=== PATIENT | female | born 1980 | race Caucasian/White ===

== ENCOUNTER 2017-10-24 17:12 | Emergency (ER) | payer BC ==
--- NOTE | 2017-10-24 17:54 | EDPHY ---
H & P Time Seen by Provider: 10/24/17 17:27 HPI/ROS: CHIEF COMPLAINT: Left knee pain HISTORY OF PRESENT ILLNESS: The patient is a 37-year-old female with a complicated past medical history. In 2004 she had a spinal fusion. 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 Over time, she has slowly regained function. However, in July of 2017 she again awoke with left lower extremity paralysis. She was seen by her primary care physician. She has been followed by Orthopedics and pain specialist. She states she had multiple falls in July striking her left knee. Since she had not had feeling in her left lower extremity she did not notice any discomfort. However, over the past 2 weeks she has had increasing left knee pain. This is primary on the anterior surface of her knee. It is moderate. It is worse with movement. She is currently wearing a brace in using crutches but is able to ambulate. REVIEW OF SYSTEMS: My complete review of systems is negative except as mentioned in the HPI. Past Medical/Surgical History: Includes avascular necrosis of left hip, acetabular fracture, pelvic fracture Past surgical history: Includes left total hip replacement, cervical fusion, lumbar sacral fusion Smoking Status: Never smoked Physical Exam: Vitals noted General Appearance: Alert and no distress. Head: Pupils equal. Normal. Respiratory: No respiratory distress. Cardiac: regular rate and rhythm. Extremities: Moves all extremities. The patient has a knee brace in place on the left. She removed the knee ablation for exam. Full range of motion, normal appearing. Patient has mild tenderness palpation over her left patella and patellar tendon. No ligamentous instability. Neurovascular intact distally Skin: No rashes or lesions. Neuro: Alert. Normal mood and affect. Constitutional: Initial Vital Signs Temperature (C) 37.3 C 10/24/17 17:22 Heart Rate 78 10/24/17 17:22 Respiratory Rate 16 10/24/17 17:22 Blood Pressure 101/61 10/24/17 17:22 O2 Sat (%) 91 L 10/24/17 17:22 O2 Delivery Mode Room Air Allergies/Adverse Reactions: acetaminophen [From Tylenol] Allergy (Verified 10/24/17 17:21) cortisone Allergy (Verified 10/24/17 17:21) Pork/Porcine Containing Products [pork] Allergy (Verified 10/24/17 17:21) Home Medications: Medication Instructions Recorded Advil 10/24/17 Librium 10 mg (RX) 10/24/17 Lyrica 10/24/17 morphINE 10/24/17 Medical Decision Making - Diagnostics Imaging Results: Imaging Impressions Knee X-Ray 10/24/17 17:49 Impression: Negative left knee radiographs. ED Course/Re-evaluation: In the emergency department I discussed possible etiologies with the patient. I answered all her questions. At this time she has no paralysis of the left lower extremity. An x-ray of her left knee was ordered. Left knee x-ray: Please refer the dictated report. No acute disease noted. I discussed the results with the patient. I answered all her questions. She will follow up with primary care physician as well as Orthopedics. She was given contact information for Orthopedics. She will continue to wear brace and use crutches. Differential Diagnosis: My differential includes but is not limited to fracture, dislocation, contusion , sprain, ligamentous injury, DVT Departure - Departure Disposition: Home, Routine, Self-Care Clinical Impression: Left knee pain Qualifiers: Chronicity: acute Qualified Code(s): M25.562 - Pain in left knee Condition: Good Instructions: Knee Pain (ED) Additional Instructions: Your x-ray was normal. You need follow-up with Orthopedics. Call to make an appointment. Referrals: David Davidson MD [Medical Doctor] - 3-4 days, if not improved
[2017-10-24 19:02] VITALS: BP 110/78
== END 2017-10-24 19:03 | disposition home or self-care (01) ==
DX: M25.562 Pain in left knee (principal)

== ENCOUNTER 2017-12-02 14:03 | Emergency (ER) | payer BC ==
--- NOTE | 2017-12-02 14:35 | EDPHY ---
General - History Smoking Status: Never smoked Time Seen by Provider: 12/02/17 14:20 Narrative: CHIEF COMPLAINT: "needs to be admitted, can't eat or walk" HISTORY OF PRESENT ILLNESS: Patient presents with father bedside. Father provides the bulk history as she has difficulty discussing the details of her illness. She reports that she has ongoing complications or spinal cord he is surgery in 2004. This consists of chronic pain, decreased sensation of mobility of the left extremities. He says over the past 2 days the patient has not been able to eat or drink anything, she is not tolerate liquids very well and has become increasingly weak. She has been to ambulate because of this. She has chronic pain but no new injuries or diagnoses. The patient and father are here because they could no longer take care her home and would like her to be evaluated for placement. REVIEW OF SYSTEMS: Ten systems reviewed and are negative unless otherwise noted in the HPI PAST MEDICAL HISTORY: Peripheral neuropathy, patellar tendinitis, avascular necrosis of the left hip, PAST SURGICAL HISTORY: Thoracic and lumbar fusions left total hip replacement with 2 revisions, C4-T1 fusion SOCIAL HISTORY: Nonsmoker. Lives at home with her parents. Originally from [place] but has been here for 3 to months. No primary care established here. She does have a crayon painter in [place], Dr. Henry FAMILY HISTORY: Noncontributory EXAMINATION General Appearance: Alert, no distress. Frail HEENT: Head is normocephalic and atraumatic. Pupils equal round reactive. Airway is widely patent with Mildly dry mucosa. Neck: Supple nontender, no crepitus, step-off, deformity or rigidity. Cardiovascular: Regular rhythm. No murmur. Good signs of perfusion distally. Respiratory: Regular rhythm. No murmur Neurological: A&O, chronic sensory deficits of the left lower extremity per patient at baseline. Strength is 5/5 in the right upper extremity right lower extremity. Strength is difficult to test the left lower extremity due to pain. Skin: Warm and dry, no rash no petechiae or purpura Extremities: Significant tenderness of the left lower extremity from the thigh need to the hip. She has decreased sensation left lower extremity. Range of motion unable to be tested left lower extremity due to pain. Range of motion right lower extremity is unremarkable and of the upper extremities unremarkable. Psychiatric: Mood and affect normal DIFFERENTIAL DIAGNOSES: Including but not limited to failure to thrive, weakness, dehydration, protein calorie malnutrition MDM: 2:25 p.m. Failure to thrive with decreased inability to tolerate intake by mouth, chronic pain, weakness, inability to care for self at home. The patient and father feel that she is unsafe at home and he is to be admitted for evaluation for placement. I have ordered laboratory studies to evaluate her electrolytes and fluid status and will proceed with evaluation following this. 4:20 p.m. Patient's laboratory studies are all within normal limits with no signs of infection, dehydration, electrolyte disturbance or protein calorie malnutrition. The patient and her father are here requesting admission for the hospital as they are no longer able to care for home and I will discuss with the hospitals. 4:30 p.m. Case discussed with hospitalist Dr. Hosea Wong. He will see the patient consultation. He is requesting case management consultation as well. I have discussed the case with Yolanda Epps RN, and she will visit with the patient as well. 5:[address] At this time Dr. Keen will assume care the patient. She is pending evaluation from case management and consultation by Dr. Wong. Please see the note of Dr. Keen for final disposition. SUPERVISION: Patient was independently examined, but I discussed the case with my secondary supervising physician [facility] ([facility] Medical Decision Makin: Case management evaluation in progress. PHYSICIAN DOCUMENTATION: The patient was evaluated and managed by the Physician Commonwealth Attorney and myself. I have reviewed the chart and addition, I examined the patient myself. History confirmed as general weakness, worsening left knee pain. Physical findings as follows: Patient has scarring on the posterior part of her left knee, compartments are soft, she can move the joint. Ultrasound ordered; negative for DVT per Dr. Mccurdy at 6:30 p.m. 1840: seen by Judith, home with pain medication per him and followup with pain specialist in the office this week, patient and family are in agreement with this plan. Referrals to Dr. Angeles and Trudi per Judith. I am the secondary supervising physician. (Jh Keen) - Diagnostics Imaging Results: Imaging Impressions Extremity Venous Study 12/02/17 17:39 Impression: No deep venous thrombosis left leg. Results called and discussed with Dr. Jh Keen at 12/02/2017 18:25. - Objective Vital Signs: Initial Vital Signs Temperature (C) 37.4 C 12/02/17 14:18 Heart Rate 56 L 12/02/17 14:18 Respiratory Rate 16 12/02/17 14:18 Blood Pressure 112/73 12/02/17 14:18 O2 Sat (%) 84 L 12/02/17 14:18 O2 Delivery Mode Room Air O2 (L/minute) 2 Allergies/Adverse Reactions: acetaminophen [From Tylenol] Allergy (Verified 10/24/17 17:21) cortisone Allergy (Verified 10/24/17 17:21) Pork/Porcine Containing Products [pork] Allergy (Verified 10/24/17 17:21) Home Medications: Medication Instructions Recorded Advil 10/24/17 Librium 10 mg (RX) 10/24/17 Lyrica 10/24/17 morphINE 10/24/17 Laboratory Results: Laboratory Results 12/02/17 14:45 12/02/17 14:45 12/02/17 12/02/17 12/02/17 17:50 14:45 14:45 WBC RBC Hgb Hct MCV MCH MCHC RDW Plt Count MPV Neut % (Auto) Lymph % (Auto) [place] % (Auto) Eos % (Auto) Baso % (Auto) Nucleat RBC Rel Count Absolute Neuts (auto) Absolute Lymphs (auto) Absolute Monos (auto) Absolute Eos (auto) Absolute Basos (auto) Absolute Nucleated RBC Immature Gran % Immature Gran # Sodium 140 mEq/L mEq/L (135-145) Potassium 3.6 mEq/L mEq/L (3.3-5.0) Chloride 106 mEq/L mEq/L (97-110) Carbon Dioxide 26 mEq/l mEq/l (22-31) Anion Gap 8 mEq/L mEq/L (8-16) BUN 9 mg/dL mg/dL (7-23) Creatinine 0.5 mg/dL L mg/dL (0.6-1.0) Estimated GFR > 60 Glucose 93 mg/dL mg/dL (70-100) Calcium 9.6 mg/dL mg/dL (8.5-10.4) Total Bilirubin 0.5 mg/dL mg/dL (0.1-1.4) Conjugated Bilirubin 0.5 mg/dL mg/dL (0.0-0.5) Unconjugated Bilirubin 0.0 mg/dL mg/dL (0.0-1.1) AST 190 IU/L H IU/L (14-46) ALT 433 IU/L H IU/L (9-52) Alkaline Phosphatase 59 IU/L IU/L (38-126) Total Protein 7.3 g/dL g/dL (6.3-8.2) Albumin 4.4 g/dL g/dL (3.5-5.0) Prealbumin 21.3 mg/dL mg/dL (17.6-36.0) Lipase 33 IU/L IU/L (23-300) Beta HCG, Qual NEGATIVE Urine Color YELLOW Urine Appearance CLEAR Urine pH 5.0 (5.0-7.5) Ur Specific [place] 1.008 (1.002-1.030) Urine Protein NEGATIVE (NEGATIVE) Urine Ketones TRACE H (NEGATIVE) Urine Blood NEGATIVE (NEGATIVE) Urine Nitrate NEGATIVE (NEGATIVE) Urine Bilirubin NEGATIVE (NEGATIVE) Urine Urobilinogen NEGATIVE EU EU (0.2-1.0) Ur Leukocyte Esterase NEGATIVE (NEGATIVE) Urine Glucose NEGATIVE (NEGATIVE) 12/02/17 14:45 WBC 4.63 10^3/uL 10^3/uL (3.80-9.50) RBC 4.40 10^6/uL 10^6/uL (4.18-5.33) Hgb 13.0 g/dL g/dL (12.6-16.3) Hct 38.5 % % (38.0-47.0) MCV 87.5 fL fL (81.5-99.8) MCH 29.5 pg pg (27.9-34.1) MCHC 33.8 g/dL g/dL (32.4-36.7) RDW 12.9 % % (11.5-15.2) Plt Count 148 10^3/uL L 10^3/uL (150-400) MPV 11.9 fL H fL (8.7-11.7) Neut % (Auto) 55.4 % % (39.3-74.2) Lymph % (Auto) 36.7 % % (15.0-45.0) [place] % (Auto) 6.9 % % (4.5-13.0) Eos % (Auto) 0.4 % L % (0.6-7.6) Baso % (Auto) 0.4 % % (0.3-1.7) Nucleat RBC Rel Count 0.0 % % (0.0-0.2) Absolute Neuts (auto) 2.56 10^3/uL 10^3/uL (1.70-6.50) Absolute Lymphs (auto) 1.70 10^3/uL 10^3/uL (1.00-3.00) Absolute Monos (auto) 0.32 10^3/uL 10^3/uL (0.30-0.80) Absolute Eos (auto) 0.02 10^3/uL L 10^3/uL (0.03-0.40) Absolute Basos (auto) 0.02 10^3/uL 10^3/uL (0.02-0.10) Absolute Nucleated RBC 0.00 10^3/uL 10^3/uL (0-0.01) Immature Gran % 0.2 % % (0.0-1.1) Immature Gran # 0.01 10^3/uL 10^3/uL (0.00-0.10) Sodium Potassium Chloride Carbon Dioxide Anion Gap BUN Creatinine Estimated GFR Glucose Calcium Total Bilirubin Conjugated Bilirubin Unconjugated Bilirubin AST ALT Alkaline Phosphatase Total Protein Albumin Prealbumin Lipase Beta HCG, Qual Urine Color Urine Appearance Urine pH Ur Specific [place] Urine Protein Urine Ketones Urine Blood Urine Nitrate Urine Bilirubin Urine Urobilinogen Ur Leukocyte Esterase Urine Glucose Departure - Departure Disposition: Home, Routine, Self-Care Clinical Impression: Weakness, Neuropathy Condition: Good Instructions: Weakness (ED) Additional Instructions: or try [facility] for PCP Referrals: Jered Orozco MD [Medical Doctor] - As per Instructions Hoda Angeles MD [Medical Doctor] - As per Instructions
[2017-12-02 15:11] LABS: PLATELET COUNT 148 10^3/uL (150-400)
[2017-12-02 19:59] VITALS: BP 114/68
--- NOTE | 2017-12-02 23:46 | PDCONSULT ---
Flat Bed Knitter Note: Primary care provider: None Primary pain specialist: Dr. Henry Primary orthopedist: Dr. Davidson Primary mental health provider: José Miguel CC: Acute leg pain HPI: 37-year-old female presents with acute leg pain characterized as severe pain located in the left lower extremity extending from the hip down to the knee , approximately 8/10 in severity, resulting in associated pain in her right shoulder which in turn reduces her ability to mentally concentrate and hold meaningful conversation. The patient reports that the onset of this severe pain was in June of 2017 when she reportedly laid on this leg, and awoke after experiencing what she considered nerve impingement. Since that time, she has been dealing with constant pain located in that area, of varying severity. Most recently, approximately 7 days ago, the patient's pain specialist modified her historic pain regimen, reducing her morphine immediate release from 30 mg administered 3 times daily to 30 mg administered twice daily. The patient also had a muscle relaxant initiated at that time, and she reports that she has also been reducing her dosage of Lyrica. Since that time, and particularly notable over the past 5 days, the patient's pain has been escalating to such as state that she has been unable to ambulate. Over this interval, the patient's appetite has been very poor, she reports that she has vomited at least several times, and she feels like she is not able to focus on food intake. She has been forcing herself to drink liquid nutritional shakes, and has been able to tolerate her home medications orally. She reports that she has vomited up some liquids, including coffee. The patient's family is very concerned about her nutritional status, and the patient is very concerned about her ability to ambulate. The patient's father endorses that in the past the patient has expressed suicidal ideation as a potential means of alleviating her chronic pain , on occasion voicing particular plan, but never actively engaging in it. Of note, the patient has suffered from chronic pain as well as mood symptoms for many years. She has had numerous surgeries performed in her back and left lower extremity, and had been working with someone believed to be a pain specialist in [place]. That said, this pain specialist reportedly had his [employer] license revoked and has been investigated by the FBI. The patient's father reports that the patient's entire medical record is within the possession of the FBI for their investigation, and is consequently on available. The patient subsequently decided to relocate to [place] as it was believed that we have better holistic healers in our locale. She relocated to [place] 4 months ago and since that time, she has been established with José Miguel through the assistance of her aunt who is a naturopathic provider at [facility]. Her parents have also been visiting the area and providing the majority of her physical and emotional care. She is stab wished pain medication treatment with Dr. Henry and was referred to Dr. Davidson for orthopedic assistance after presenting to the emergency department several times complaining of left lower extremity pain. A possible etiology of some of her pain in her left knee was felt to be patellar tendinitis, and physical therapy was recommended. Review of systems: Pain left lower extremity, vomiting, anorexia, all other 10 point review systems otherwise negative. Past medical history: As noted above, the patient has a lengthy history of chronic pain in her back and left lower extremity, she endorses a history of anorexia, her father reports a history of depression Past surgical history: Spinal surgery in 2004 with reported C4-T1 fusion, subsequent surgery to her left hip for avascular necrosis of unclear etiology Home medications: Morphine immediate release 30 mg twice daily, Lyrica, possibly tizanidine Social history: The patient has been living in [place] for 4 months, her parents are her primary physical caretakers, her aunt lives locally, she utilizes arm braces for ambulation, she does not drink alcohol or smoke cigarettes, she does use THC extract Family history: The patient has a 2nd and 3rd degree maternal relations who reportedly of pain, alcoholism in the patient's brother, depression and attention deficit hyperactivity disorder in patient's brother Allergies: Numerous medication allergies, unclear reactions Physical exam: Systolic blood pressure 112, heart rate 56, respirations 16, SpO2 84% on room air, temperature 37.4 degrees Generally: Alert awake oriented x3, no apparent distress, patient reports that she is experiencing pain Neuro: Sensation intact bilaterally, patient denies temperature sensation in her left lower extremity, she endorses pressure sensation left lower extremity, motor strength is 5/5 bilateral lower extremities distally, pain is elicited on hip flexion in the left lower extremity which limits motor assessment, she has 5 /5 motor strength right lower extremity, 5/5 nurse plastics strength bilateral hands, facial symmetry Psych: Flat affect, emotions fluctuate during exam, becoming tearful on occasion but then pleasant and polite, thought process is linear comma speech is somewhat slow Cardiac: Heart rhythm is regular, no murmurs rubs or gallops, pulses palpable in the bilateral dorsalis pedis Pulmonary: Lungs are clear to auscultation bilaterally without any crackles or wheezes GI: Abdomen is soft nontender nondistended, bowel sounds are present Skin: Numerous scars over the left hip, no evidence of stasis dermatitis bilateral lower extremity EENT: Moist mucous membranes, no thrush, pupils equal round reactive to light Data: Lipase normal, pre-albumin 21, albumin 4.4, AST 190, ALT 430, white blood cell count 4600, creatinine 0.5, potassium 3.6, serum sodium 140 Imagin10/24/17 knee x-ray demonstrating no fracture, no dis-alignment Outside records: 10/24/2017 emergency department report by Dr. Anisa Umana reports the patient presented for left knee pain, x-ray demonstrating no abnormalities, patient was provided with follow-up information for Dr. Davidson Assessment: 37-year-old female presents with acute on chronic pain secondary to suspected complex regional pain syndrome with suspected underlying mood and mental health disorder as well as continuous opiate dependency Plan: 1. Suspected complex regional pain syndrome. Acute worsening of chronic pain, new problem this provider, further workup is indicated as an outpatient. The patient clearly has a disproportionate amount of pain for any underlying physical etiology which may consist of patellar tendinopathy or peripheral neuropathy secondary to her previous history of orthopedic surgeries. Although I currently do not have access to her records from [place], which are reportedly currently an FBI custody, her father's description of past workup seems indicative that the patient has likely been thoroughly evaluated by orthopedic and neurosurgical providers and seems unlikely that there is a unifying structural etiology for all of her pain symptoms. -that said, the patient is currently under the care of Dr. Henry who was reportedly evaluating whether the patient has a structural cause of her worsening of symptoms since June of 2017, and I will defer to Dr. Henry as to whether there is a verifiable intervene able cause -Dr. Davidson is assisting the patient with management of her potential orthopedic etiologies of pain and I will defer to Dr. Davidson in whether additional imaging is likely to reveal any structural etiology there in that left knee or left hip -we performed a lower extremity ultrasound which demonstrated no evidence of deep venous thrombosis in the left lower extremity -given that the patient's recent reduction in functional mobility was immediately precipitated by reduction in her opiate pain medication, in order to prevent escalating the patient's deconditioning and spiral downward, we will provide her with a limited supply of morphine immediate release 30 mg so the patient is able to compensate enough to see her outpatient providers and work on an alternative strategy, which balances functional mobility and opiate dependency -unless the patient has an absolute indication for subsequent surgery, I would highly recommend that her outpatient providers attempt to manage her functional status without engaging in additional surgery, as her father has reported to me some troubling regulations including that the patient has requested amputation of her extremities in the past as coping mechanisms for her pain, which are clearly not indicated 2. Suspected underlying mood and mental health disorder. The patient freely admits that she historically did suffer from anorexia, and her father does believe that the patient has suffered from depression which would be a natural consequence of dealing above-mentioned pain syndrome, but I suspect that the patient requires more intensive work with a mental health provider, seeing as her father reports that she has intermittently verbalized passive suicidal ideation with specific plan, but has never materialized this into action -her father does not come presently believe that she is suicidal, the patient does not verbalize that she has thoughts of harming herself -she is currently established with a very robust mental health service here in [place], [facility], but I do question whether they are fully aware of the density of the patient's potential mental health issues, as it is sometimes easy to become lost in the patient's focus on the complexities of her pain and over look that the patient may be truly suffering from mental health perspective -I recommended that the patient establish care with a primary care medical provider understands these complexities and interactions and may be able to help coordinate some of this care, the patient her family are very open to this 3. Continuous opiate dependency. The patient clearly has an opiate dependency, both physiologic and emotionally, as she broke down in tears of relief when I shared with her that I would provide her with a short supply of morphine immediate release to bridge her until she sees Dr. Henry -defer outpatient opiate management to her primary pain specialist, but should make note that the patient is at high risk for abuse and overuse potential 4. Vomiting. Her family's chief concern was regarding nutritional status, and both her pre-albumin and albumin levels were within normal limits as well as her electrolytes, indicating that any recent reduction in oral intake has been supplemented adequately with liquid nutritional supplement shakes -I encouraged the patient to continue utilizing the shakes, advance her oral diet as tolerates -the patient requested a feeding tube, there is currently no indication for feeding tube, and I explained this to the patient her family, and they are agreeable to attempting conservative management at this time -I suspect the patient's recent GI decompensation is also a reflection of her destabilized the pain and emotional state, and I imagine that it will improve with improved pain management The patient and her family were satisfied with the treatment recommendations above and were comfortable being discharged home, with family support as well as the support of the aforementioned outpatient providers.
--- NOTE | 2017-12-03 14:44 | ASDISCHSUM ---
Discharge Information Plan Status:Home with No Needs Medically Cleared to Leave: Discharge Date:12/02/2017 08:27 PM CM D/C Disposition:Home, Routine, Self-Care ADT D/C Disposition:Home, Routine, Self-Care Projected Discharge Date:12/02/2017 08:27 PM Transportation at D/C:Family Discharge Delay Reason: Follow-Up Date:12/02/2017 08:27 PM Discharge Slot: Final Diagnosis: Placement Information Patient Contact Information Contact Name:MARIELA Relationship: Address: Work Phone: City: [facility] Phone: State/Zip Code:[place] Email: Financial Information Financial Class:HMO and PPO Plans Primary Plan Desc: OUT OF STATE PPO Primary Plan Number:[id number] Secondary Plan Desc: Secondary Plan Number: Assessment Information [facility] Progress Note CM Note CM Note Notes: Late Entry from 12/02/17: *Please refer to Dr Wong's consultation report for further background and discussion re:pt's safe discharge plan home. Pt presented to the ED via EMS for left knee pain, decreased intake, weakness and requesting admission. Pt was medically evaluated. After labs, urine, and the LLE US resulted, it was determined that pt had no acute medical needs and pt didn't meet criteria for admission. Pt's mother, father and aunt were all at bedside. ED Provider, this CM, and the hospitalist Dr Wong spent extensive time discussing a safe discharge plan for pt to return home and follow-up outpatient w/her orthopedist, Dr Davidson, and her paperhanger and painter, Dr Dasilva at [facility] (O:[phone]; F:[phone]) in [place]. Pt ultimately needing better pain relief due to recent changes in her pain medication regimen; Dr Wong called Dr Dasilva's office and consulted the on-call provider for pain mgmt recommendation. Dr Wong provided pt with a hand written prescription for Morphine IR 30mg (QTY#:10). Pt and family agreeable to overall discharge plan. CM was then alerted that the patient and her family were requesting stretcher transport back to pt's apartment. This CM explained that most likely her insurance would not cover the NEMT stretcher due to not being medically indicated so there would be a high risk of being billed a large amount for the transport. Pt's mother wanted to self pre-pay for a stretcher transport even though it would be $295. This CM called and arranged the transport via [facility] but the ETA was 1.5 - 2hrs out; pt became agitated and family appeared shocked and did not want to wait that long. We discussed wheelchair transport options through [facility] and other private WC transport companies; [facility]'s WC transport ETA was also 1.5-2hrs out and the other various options were not available. This CM found a donated wheelchair in the hospital's basement garage and brought it up to the ED. The wheelchair did not have leg extensions for pt's left leg to be supported, so initially they didn't want to use it. This CM consulted w/MARKOS Blankenship re:any other WC options for the family to borrow and bring back the same night but ultimately this was not an option due to hospital policy. This CM presented pt and family with the two options of 1) waiting 1.5-2hrs for NEMT stretcher or WC transport or 2) to take the donated WC since pt states she can prop her leg up with a pillow and her family can safely ensure she gets home safely. Pt and family opted for the latter option. This CM felt it would be appropriate to have pt sign a release of liability for taking the donated WC w/o leg extensions. This CM found a generic release of liability for DME online and had patient sign it. Copy provided to patient and original to be scanned into pt's chart. It was communicated clearly (w/pt, family and ED RN at bedside) that the pt does not necessarily need to return the wheelchair as it is not a "loan or rental;" it was a donated item that is free for her to use or not use. But if patient no longer needs it and wants to return it to [facility], we would be glad to have it re-donated. CM available for further assistance if needed. Date Signed: 12/03/2017 02:42 PM Electronically Signed By:Yolanda Epps RN Intervention Information Intervention Type:Community Resources Date of Service:12/03/2017 02:42 PM Patient Type:Emergency Room Staff Member:NANCY Epps [place] Hours:0.25 Discipline:Collar Shaper Operator Severity: Comment:DME preet Intervention Type:Transportation Date of Service:12/03/2017 02:42 PM Patient Type:Emergency Room Staff Member:NANCY Epps [place] Hours:2 Discipline:Collar Shaper Operator Severity: Comment:various coordination efforts re: pt re turning home
== END 2017-12-02 20:27 | disposition home or self-care (01) ==
LOC: EDUNIT#
DX: G62.9 Polyneuropathy, unspecified (principal); R53.1 Weakness
CPT/HCPCS: 84134-90

== ENCOUNTER 2018-07-05 06:55 | Observation (INO) | payer OTHER, MEDICAID ==
[2018-07-05 07:33] LABS: PLATELET COUNT 190 10^3/uL (150-400)
[2018-07-05] MEDS ORDERED: NS 1,000 ML IV ONE ×2 (07:36→11:18)
[2018-07-05] MEDS ORDERED: ONDANSETRON 4 MG/2 ML VIAL IVP ONE (07:37)
--- NOTE | 2018-07-05 07:45 | EDPHY ---
HPI/HX/ROS/PE/MDM Narrative: CHIEF COMPLAINT: Abdominal pain HISTORY OF PRESENT ILLNESS: The patient is a 38 y/o female arriving with her mother complaining of waxing and waning epigastric abdominal pain for several weeks worsening over the last week and becoming notably worse in the last 24 hours. Her medical history includes chronic pain, spinal cord injury, probable anorexia, and anxiety. Her medications include Fentanyl patch, hydromorphone, Lyrica, diazepam, clonidine, and nasal ketamine for a recent thermal burn from a rice pack. These are prescribed by her pain doctor in [place], Dr. Henry. Her abdominal pain today feels "like I'm being impaled all the way through to my back" and is sometimes associated with nausea. No vomiting or fever. She cannot identify clear aggravating factors. A heated rice pack applied to her abdomen is sometimes helpful and she denies increasing her pain medications due to this pain. Per mother, she's had significantly decreased food intake for several months and has been only eating pureed foods at home. She denies prior history of similar symptoms, GERD, appendicitis, gall bladder issues, or blood clots. She has not menstruated for at least 3 years and she does not know why. No fever, chills, chest pain, shortness of breath, palpitations, vomiting, diarrhea, urinary complaints, constipation, leg swelling, headache, lightheadedness. REVIEW OF SYSTEMS: Aside from elements discussed in the HPI, a comprehensive 10-point review of systems was reviewed and is negative. Decreased sensation and weakness in left leg following spinal cord injury. 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 Mother at bedside. VITAL SIGNS: Reviewed by me GENERAL: Thin, slow to respond to questions, appears over-narcotized. No respiratory distress. HEENT: Atraumatic. Eyes: No icterus, no injection, small pupils. Mouth: dry mucous membranes. No erythema or lesions. Neck: supple with no adenopathy. LUNGS: Clear to auscultation bilaterally, no wheezes, rhonchi or rales. CARDIAC: Regular rate and rhythm, no rubs, murmurs or gallops. ABDOMEN: Soft, very mild epigastric and RUQ tendereness. No guarding or rebound. Nondistended. Patient has 3 fentanyl patches on the lower abdomen. BACK: No CVA tenderness. Old surgical scar on spine. EXTREMITIES: No trauma. No edema. Range of motion is normal throughout. NEURO: Alert and oriented, grossly nonfocal. SKIN: Warm and dry, no rash. PSYCHIATRIC: Normal mentation, no agitation. Portions of this note were transcribed by a medical biller. I personally performed a history, physical exam, medical decision making, and confirmed accuracy of information the transcribed note. ED Course: This is a 38 y/o female with chronic pain on several narcotics who presents with a few-week history of epigastric abdominal pain worsening over the last 24 hours. She's additionally had decreased food intake for several months per her mother. She is thin, slow to respond, and appears over-narcotized on exam. Her abdomen is benign and vitals are within normal limits. Suspect constipation vs. acalculous cholecystitis versus gastritis. Plan for IV, labs, UA, abdominal CT, rehydration. 1L IV NS and 4mg IV Zofran ordered. Abdominal CT: refer to radiologist report. Patient does have the enlarged common bile duct diameter, as well as slight thickening of the gastric wall, potentially indicating gastritis. LFTs and lipase normal. Bilirubin is normal. GI cocktail ordered. 0950: Reassessed patient and discussed findings. Will order an ultrasound to further evaluate the common bile duct dilatation especially in the setting of an individual whose had very poor p.o. Intake for several months. Abdominal US: no cholelithiasis, thickened gallbladder wall, thickened and enlarged common bile duct suggestive of cholangitis vs. acalculous cholecystitis. 1100: Consulted with Dr. Falk, surgeon. Dr. Falk recommends a HIDA scan. He will follow as needed and will will be happy to consult if the hospitalist service requests. Patient reports increased pain. She also feels significantly constipated. She received Bentyl, was started on magnesium citrate to help with constipation, and received a rectal suppository to stimulate the lower in bowels. Of note, patient also was noted to have potassium of 3.3. She did receive potassium supplementation . Spoke with hospitalist service. Dr. Arriaga accepts admission. MDM: CT scan called to me by Dr. Espino as demonstrating some periportal edema, somewhat enlarged common bile duct at 7 mm, slightly thickened gallbladder wall. Patient also has thickened gastric wall which may be consistent with gastritis. She also is constipated. After obtaining the patient's history and performing an examination, differential diagnosis considered included but was not limited to appendicitis, cholecystitis, acalculous cholecystitis, gastritis, pancreatitis, constipation, urinary tract infections and other causes. - Data Points Imaging Results: Imaging Impressions Abdomen CT 07/05/18 08:06 Impression: 1. Periportal edema associated with the liver without focal abnormality. 2. No CT evidence of appendicitis, abscess or bowel obstruction. 3. Mild thickening of the gastric wall. This could be related to poor distention versus gastritis. 4. Mild to moderate constipation. 5. Distended second and third portion of the duodenum. This is probably related to peristalsis. Narrowing of the third-fourth portion of the duodenum secondary to SMA syndrome is felt to be less likely. 6. Mild dilatation of the common hepatic duct and common bile duct with periportal edema. If indicated, consider correlation with right upper quadrant ultrasound. Findings discussed with Alejandra Cuellar MD at 9:12 hour, 07/05/2018. Abdomen Ultrasound 07/05/18 09:17 Impression: Mild gallbladder wall thickening without evidence for cholelithiasis. This could represent early acalculous cholecystitis. Common bile duct is mildly enlarged at 7 mm and question mild wall thickening. Included in the differential could be cholangitis. No ultrasound findings for choledochal stone. Results called and discussed with Dr. Alejandra Cuellar on July 05, 2018 at 1038 hours. Imaging: Discussed imaging studies w/ call box wirer Radiologist, I viewed and interpreted images myself Laboratory Results: Laboratory Results 07/05/18 07:18 07/05/18 07:18 07/05/18 07/05/18 07/05/18 09:16 07:18 07:18 WBC 7.70 10^3/uL 10^3/uL (3.80-9.50) RBC 4.60 10^6/uL 10^6/uL (4.18-5.33) Hgb 13.2 g/dL g/dL (12.6-16.3) Hct 39.2 % % (38.0-47.0) MCV 85.2 fL fL (81.5-99.8) MCH 28.7 pg pg (27.9-34.1) MCHC 33.7 g/dL g/dL (32.4-36.7) RDW 14.2 % % (11.5-15.2) Plt Count 190 10^3/uL 10^3/uL (150-400) MPV 10.4 fL fL (8.7-11.7) Neut % (Auto) 53.1 % % (39.3-74.2) Lymph % (Auto) 37.5 % % (15.0-45.0) [place] % (Auto) 7.7 % % (4.5-13.0) Eos % (Auto) 1.2 % % (0.6-7.6) Baso % (Auto) 0.4 % % (0.3-1.7) Nucleat RBC Rel Count 0.0 % % (0.0-0.2) Absolute Neuts (auto) 4.09 10^3/uL 10^3/uL (1.70-6.50) Absolute Lymphs (auto) 2.89 10^3/uL 10^3/uL (1.00-3.00) Absolute Monos (auto) 0.59 10^3/uL 10^3/uL (0.30-0.80) Absolute Eos (auto) 0.09 10^3/uL 10^3/uL (0.03-0.40) Absolute Basos (auto) 0.03 10^3/uL 10^3/uL (0.02-0.10) Absolute Nucleated RBC 0.00 10^3/uL 10^3/uL (0-0.01) Immature Gran % 0.1 % % (0.0-1.1) Immature Gran # 0.01 10^3/uL 10^3/uL (0.00-0.10) Sodium Potassium Chloride Carbon Dioxide Anion Gap BUN Creatinine Estimated GFR Glucose Calcium Total Bilirubin Conjugated Bilirubin Unconjugated Bilirubin AST ALT Alkaline Phosphatase Total Protein Albumin Lipase Beta HCG, Qual NEGATIVE Urine Color PALE YELLOW Urine Appearance HAZY Urine pH 8.0 H (5.0-7.5) Ur Specific [place] 1.031 H (1.002-1.030) Urine Protein NEGATIVE (NEGATIVE) Urine Ketones NEGATIVE (NEGATIVE) Urine Blood NEGATIVE (NEGATIVE) Urine Nitrate NEGATIVE (NEGATIVE) Urine Bilirubin NEGATIVE (NEGATIVE) Urine Urobilinogen NEGATIVE EU EU (0.2-1.0) Ur Leukocyte Esterase NEGATIVE (NEGATIVE) Urine RBC 1-3 /hpf /hpf (0-3) Urine WBC 1-3 /hpf /hpf (0-3) Ur Epithelial Cells TRACE /lpf /lpf (NONE-1+) Urine Glucose NEGATIVE (NEGATIVE) Urine Opiates Screen NON-NEGATIVE H (NEGATIVE) Urine Barbiturates NEGATIVE (NEGATIVE) Ur Phencyclidine Scrn NEGATIVE (NEGATIVE) Ur Amphetamine Screen NEGATIVE (NEGATIVE) U Benzodiazepines Scrn NON-NEGATIVE H (NEGATIVE) Urine Cocaine Screen NEGATIVE (NEGATIVE) U Marijuana (THC) Screen NON-NEGATIVE H (NEGATIVE) 07/05/18 07:18 WBC RBC Hgb Hct MCV MCH MCHC RDW Plt Count MPV Neut % (Auto) Lymph % (Auto) [place] % (Auto) Eos % (Auto) Baso % (Auto) Nucleat RBC Rel Count Absolute Neuts (auto) Absolute Lymphs (auto) Absolute Monos (auto) Absolute Eos (auto) Absolute Basos (auto) Absolute Nucleated RBC Immature Gran % Immature Gran # Sodium 138 mEq/L mEq/L (135-145) Potassium 3.3 mEq/L L mEq/L (3.5-5.2) Chloride 102 mEq/L mEq/L (97-110) Carbon Dioxide 29 mEq/l mEq/l (22-31) Anion Gap 7 mEq/L mEq/L (6-14) BUN 8 mg/dL mg/dL (7-23) Creatinine 0.5 mg/dL L mg/dL (0.6-1.0) Estimated GFR > 60 Glucose 109 mg/dL H mg/dL (70-100) Calcium 9.4 mg/dL mg/dL (8.5-10.4) Total Bilirubin 0.6 mg/dL mg/dL (0.1-1.4) Conjugated Bilirubin 0.3 mg/dL mg/dL (0.0-0.5) Unconjugated Bilirubin 0.3 mg/dL mg/dL (0.0-1.1) AST 30 IU/L IU/L (14-46) ALT 28 IU/L IU/L (9-52) Alkaline Phosphatase 75 IU/L IU/L (38-126) Total Protein 6.9 g/dL g/dL (6.3-8.2) Albumin 4.1 g/dL g/dL (3.5-5.0) Lipase 49 IU/L IU/L (23-300) Beta HCG, Qual Urine Color Urine Appearance Urine pH Ur Specific [place] Urine Protein Urine Ketones Urine Blood Urine Nitrate Urine Bilirubin Urine Urobilinogen Ur Leukocyte Esterase Urine RBC Urine WBC Ur Epithelial Cells Urine Glucose Urine Opiates Screen Urine Barbiturates Ur Phencyclidine Scrn Ur Amphetamine Screen U Benzodiazepines Scrn Urine Cocaine Screen U Marijuana (THC) Screen Medications Given: Fentanyl (Duragesic) 100 mcg TD Q72H MATT Stop: 07/15/18 13:14 Last Admin: 07/05/18 14:11 Dose: Not Given Pantoprazole Sodium (Protonix) 40 mg IVP DAILY MATT Stop: 01/01/19 12:59 Last Admin: 07/05/18 14:39 Dose: 40 mg Discontinued Medications Al Hydroxide/Mg Hydroxide (Maalox Susp) 30 ml PO ONCE ONE Stop: 07/05/18 08:07 Last Admin: 07/05/18 08:12 Dose: 30 ml Bisacodyl (Dulcolax Rectal) 10 mg IA EDNOW ONE Stop: 07/05/18 11:22 Last Admin: 07/05/18 11:26 Dose: 10 mg Dicyclomine HCl (Bentyl) 20 mg PO EDNOW ONE Stop: 07/05/18 11:19 Last Admin: 07/05/18 11:26 Dose: 20 mg Hyoscyamine Sulfate (Levsin, Hyomax-Sl) 0.25 mg PO ONCE ONE Stop: 07/05/18 08:07 Last Admin: 07/05/18 08:12 Dose: 0.25 mg Sodium Chloride (Ns) 1,000 mls @ 0 mls/hr IV EDNOW ONE; Wide Open PRN Reason: Protocol Stop: 07/05/18 07:37 Last Admin: 07/05/18 07:41 Dose: 1,000 mls Famotidine/Sodium Chloride (Pepcid 20 Mg (Premix)) 50 mls @ 200 mls/hr IV EDNOW ONE Stop: 07/05/18 08:20 Last Admin: 07/05/18 08:12 Dose: 50 mls Sodium Chloride (Ns) 1,000 mls @ 0 mls/hr IV ONCE ONE; Wide Open PRN Reason: Protocol Stop: 07/05/18 11:19 Last Admin: 07/05/18 11:25 Dose: 1,000 mls Lidocaine (Lidocaine 2% Viscous) 15 ml PO ONCE ONE Stop: 07/05/18 08:07 Last Admin: 07/05/18 08:12 Dose: 15 ml Magnesium Citrate (Magnesium Citrate) 300 ml PO ONCE ONE Stop: 07/05/18 11:19 Last Admin: 07/05/18 11:25 Dose: 300 ml Ondansetron HCl (Zofran) 4 mg IVP EDNOW ONE Stop: 07/05/18 07:38 Last Admin: 07/05/18 07:42 Dose: 4 mg Potassium Chloride (Klor-Con) 40 meq PO ONCE ONE Stop: 07/05/18 08:58 Last Admin: 07/05/18 09:31 Dose: 40 meq General Time Seen by Provider: 07/05/18 07:12 Initial Vital Signs: Initial Vital Signs Temperature (C) 36.6 C 07/05/18 06:59 Heart Rate 74 07/05/18 06:59 Respiratory Rate 20 07/05/18 06:59 Blood Pressure 105/66 07/05/18 06:59 O2 Sat (%) 93 07/05/18 06:59 O2 Delivery Mode Room Air Allergies/Adverse Reactions: acetaminophen [From Tylenol] Allergy (Verified 07/05/18 11:32) Rash cortisone Allergy (Verified 07/05/18 11:32) Other-Enter Comments Pork/Porcine Containing Products [pork] Allergy (Verified 07/05/18 06:57) Home Medications: Medication Instructions Recorded Pregabalin [Lyrica 100mg (*)] 100 mg PO TID 10/24/17 Diazepam [Valium 10 MG (*)] 20 - 30 mg PO TID PRN 07/05/18 HYDROmorphone HCL [Dilaudid 4 mg 4 mg PO QID PRN 07/05/18 (*)] Herbals/Supplements -Info Only 1 each PO DAILY 07/05/18 Ketamine Nasal [place] 1 spray EACHNARE DAILY PRN 07/05/18 Melatonin [Melatonin 3 MG (*)] 3 mg PO HS 07/05/18 Multivitamins [Multivitamin (*)] 1 each PO DAILY 07/05/18 Vitamin B Complex [Vitamin B 1 each PO DAILY 07/05/18 Complex (OTC)] clonIDINE [Catapres (*)] 0.1 - 0.3 mg PO HS PRN 07/05/18 fentaNYL [Duragesic 100 MCG Patch 100 mcg TD Q72H 07/05/18 (*)] Departure - Departure Disposition: [facility] Acute Clinical Impression: cholangitis vs acalculous cholecystitis, possible gastritis Abdominal pain Qualifiers: Abdominal location: epigastric Qualified Code(s): R10.13 - Epigastric pain Constipation Qualifiers: Constipation type: drug induced constipation Qualified Code(s): K59.03 - Drug induced constipation Condition: Fair Report Scribed for: Alejandra Cuellar Report Scribed by: Odalys Landa Date of Report: 07/05/18 Time of Report: 07:45
[2018-07-05] MEDS ORDERED: FAMOTIDINE 20 MG/NACL 50 ML IV ONE (08:06)
[2018-07-05] MEDS ORDERED: LIDOCAINE 2% VISCOUS 15 ML UDCUP PO ONE (08:06)
[2018-07-05] MEDS ORDERED: MAG HYDROX/AL HYDROX/SIMETH 30 ML UDCUP PO ONE (08:06)
[2018-07-05] MEDS ORDERED: HYOSCYAMINE SULFATE 0.125 MG TAB PO ONE (08:06)
[2018-07-05] MEDS ORDERED: IOHEXOL 300 mgI/ML (OMNIPAQUE) 150 ML BTL IV ONE (08:17)
[2018-07-05] MEDS ORDERED: POTASSIUM CL 20 MEQ TAB PO ONE (08:57)
[2018-07-05] MEDS ORDERED: DICYCLOMINE 10 MG CAP PO ONE (11:18)
[2018-07-05] MEDS ORDERED: MAGNESIUM CITRATE 300 ML BOTTLE PO ONE (11:18)
[2018-07-05] MEDS ORDERED: BISACODYL 10 MG SUPP PR ONE (11:21)
[2018-07-05] MEDS ORDERED: ONDANSETRON 4 MG/2 ML VIAL IVP PRN (12:55)
[2018-07-05] MEDS ORDERED: HYDROCODONE/APAP 5/325 TAB PO PRN (12:55)
[2018-07-05] MEDS ORDERED: ACETAMINOPHEN 325 MG TAB PO PRN (12:55)
[2018-07-05] MEDS ORDERED: HYDROmorphONE/DILAUDID 1 MG/ML INJ IVP PRN (12:55)
[2018-07-05] MEDS ORDERED: ONDANSETRON DISINTEGRATING 4 MG TAB PO PRN (12:55)
[2018-07-05] MEDS ORDERED: NS 1,000 ML IV SCH (13:00)
[2018-07-05] MEDS ORDERED: HYDROmorphONE/DILAUDID 4 MG TAB PO PRN (13:01)
[2018-07-05] MEDS ORDERED: KETAMINE EACHNARE PRN (13:01)
[2018-07-05] MEDS ORDERED: MAGNESIUM HYDROXIDE 30 ML UDCUP PO PRN (13:03)
[2018-07-05] MEDS ORDERED: BISACODYL 10 MG SUPP PR PRN (13:03)
[2018-07-05] MEDS ORDERED: POLYETHYLENE GLYCOL 3350 17 GM PKT PO PRN (13:03)
[2018-07-05] MEDS ORDERED: LACTULOSE 20 GM/30 ML UDCUP PO PRN (13:03)
[2018-07-05] MEDS ORDERED: fentaNYL 100 MCG PATCH TD SCH (13:15)
[2018-07-05] MEDS: PANTOPRAZOLE SODIUM 40 MG VIAL IVP SCH (14:39)
--- NOTE | 2018-07-05 14:42 | PDGENHP ---
History and Physical - Chief Complaint abdominal pain - History of Present Illness 38 yo female with h/o chronic pain on chronic continuous opioids presents to ED with epigastric abdominal pain. She notes this has been present for several weeks, but has slowly worsened and today became severe. She describes the pain as a hot poking feeling, localized to her epigastrium, but radiating to her back. No vomiting. No fevers, but she gets chills. No diarrhea, notes thicker , harder stools recently. She was transitioned from oral opioids to fentanyl patches, current dose is 150 mcg q72 hrs, but I noticed she has 200 mcg of patches on her abdomen currently. She says one is old. She takes oral dilaudid 2 mg twice daily. She reports 15 lb weight loss since this summer. Her PCP ordered PPI, but she only took one dose, noting it did not help. In the ED, CT revealed multiple abnormalities. She is admitted for further evaluation. History Information - Allergies/Home Medication List Allergies/Adverse Reactions: acetaminophen [From Tylenol] Allergy (Verified 07/05/18 11:32) Rash cortisone Allergy (Verified 07/05/18 11:32) Other-Enter Comments Pork/Porcine Containing Products [pork] Allergy (Verified 07/05/18 06:57) Home Medications: Pregabalin [Lyrica 100mg (*)] 100 mg PO TID 10/24/17 [Last Taken 07/04/18 21:00] Diazepam [Valium 10 MG (*)] 20 - 30 mg PO TID PRN 07/05/18 [Last Taken 07/04/18 21:00] HYDROmorphone HCL [Dilaudid 4 mg (*)] 4 mg PO QID PRN 07/05/18 [Last Taken 07/04 21:00] Herbals/Supplements -Info Only 1 each PO DAILY 07/05/18 [Last Taken Unknown] Ketamine Nasal [place] 1 spray EACHNARE DAILY PRN 07/05/18 [Last Taken Unknown] Melatonin [Melatonin 3 MG (*)] 3 mg PO HS 07/05/18 [Last Taken 07/04/18] Multivitamins [Multivitamin (*)] 1 each PO DAILY 07/05/18 [Last Taken Unknown] Vitamin B Complex [Vitamin B Complex (OTC)] 1 each PO DAILY 07/05/18 [Last Taken Unknown] clonIDINE [Catapres (*)] 0.1 - 0.3 mg PO HS PRN 07/05/18 [Last Taken 07/04/18] fentaNYL [Duragesic 100 MCG Patch (*)] 100 mcg TD Q72H 07/05/18 [Last Taken ] I have personally reviewed and updated: family history, medical history, social history, surgical history - Past Medical History Additional medical history: Chronic pain 2/2 spinal cord injury, complication of surgery for scoliosis. Avascular necrosis. Peripheral neuropathy. Anxiety - Surgical History Additional surgical history: Spinal surgery - Family History Positive for: non-pertinent - Social History Smoking Status: Never smoked Alcohol Use: None Drug Use: None Additional social history: Lives independently, mom at bedside Review of Systems Review of Systems: ROS: 10pt was reviewed & negative except for what was stated in HPI & below Physical Exam Physical Exam: Temp Pulse Resp BP Pulse Ox 36.9 C 74 18 101/72 97 07/05/18 13:00 07/05/18 13:00 07/05/18 13:00 07/05/18 13:00 07/05/18 13:00 Constitutional: no apparent distress Eyes: PERRL Ears, Nose, Mouth, Throat: moist mucous membranes Cardiovascular: regular rate and rhythym Respiratory: no respiratory distress, clear to auscultation Gastrointestinal: other (soft, nd, +epigastric TTP and RUQ TTP without r/r/g, + BS) Skin: warm Musculoskeletal: full muscle strength Neurologic: AAOx3 Psychiatric: interacting appropriately Lab Data & Imaging Review 07/05/18 07:18 07/05/18 07:18 WBC 7.70 10^3/uL (3.80-9.50) 07/05/18 07:18 RBC 4.60 10^6/uL (4.18-5.33) 07/05/18 07:18 Hgb 13.2 g/dL (12.6-16.3) 07/05/18 07:18 Hct 39.2 % (38.0-47.0) 07/05/18 07:18 MCV 85.2 fL (81.5-99.8) 07/05/18 07:18 MCH 28.7 pg (27.9-34.1) 07/05/18 07:18 MCHC 33.7 g/dL (32.4-36.7) 07/05/18 07:18 RDW 14.2 % (11.5-15.2) 07/05/18 07:18 Plt Count 190 10^3/uL (150-400) 07/05/18 07:18 MPV 10.4 fL (8.7-11.7) 07/05/18 07:18 Neut % (Auto) 53.1 % (39.3-74.2) 07/05/18 07:18 Lymph % (Auto) 37.5 % (15.0-45.0) 07/05/18 07:18 [place] % (Auto) 7.7 % (4.5-13.0) 07/05/18 07:18 Eos % (Auto) 1.2 % (0.6-7.6) 07/05/18 07:18 Baso % (Auto) 0.4 % (0.3-1.7) 07/05/18 07:18 Nucleat RBC Rel Count 0.0 % (0.0-0.2) 07/05/18 07:18 Absolute Neuts (auto) 4.09 10^3/uL (1.70-6.50) 07/05/18 07:18 Absolute Lymphs (auto) 2.89 10^3/uL (1.00-3.00) 07/05/18 07:18 Absolute Monos (auto) 0.59 10^3/uL (0.30-0.80) 07/05/18 07:18 Absolute Eos (auto) 0.09 10^3/uL (0.03-0.40) 07/05/18 07:18 Absolute Basos (auto) 0.03 10^3/uL (0.02-0.10) 07/05/18 07:18 Absolute Nucleated RBC 0.00 10^3/uL (0-0.01) 07/05/18 07:18 Immature Gran % 0.1 % (0.0-1.1) 07/05/18 07:18 Immature Gran # 0.01 10^3/uL (0.00-0.10) 07/05/18 07:18 VBG Lactic Acid 0.5 mmol/L (0.7-2.1) L 07/05/18 11:35 Sodium 138 mEq/L (135-145) 07/05/18 07:18 Potassium 3.3 mEq/L (3.5-5.2) L 07/05/18 07:18 Chloride 102 mEq/L (97-110) 07/05/18 07:18 Carbon Dioxide 29 mEq/l (22-31) 07/05/18 07:18 Anion Gap 7 mEq/L (6-14) 07/05/18 07:18 BUN 8 mg/dL (7-23) 07/05/18 07:18 Creatinine 0.5 mg/dL (0.6-1.0) L 07/05/18 07:18 Estimated GFR > 60 07/05/18 07:18 Glucose 109 mg/dL (70-100) H 07/05/18 07:18 Calcium 9.4 mg/dL (8.5-10.4) 07/05/18 07:18 Total Bilirubin 0.6 mg/dL (0.1-1.4) 07/05/18 07:18 Conjugated Bilirubin 0.3 mg/dL (0.0-0.5) 07/05/18 07:18 Unconjugated Bilirubin 0.3 mg/dL (0.0-1.1) 07/05/18 07:18 AST 30 IU/L (14-46) 07/05/18 07:18 ALT 28 IU/L (9-52) 07/05/18 07:18 Alkaline Phosphatase 75 IU/L (38-126) 07/05/18 07:18 Total Protein 6.9 g/dL (6.3-8.2) 07/05/18 07:18 Albumin 4.1 g/dL (3.5-5.0) 07/05/18 07:18 Lipase 49 IU/L (23-300) 07/05/18 07:18 Beta HCG, Qual NEGATIVE 07/05/18 07:18 Urine Color PALE YELLOW 07/05/18 09:16 Urine Appearance HAZY 07/05/18 09:16 Urine pH 8.0 (5.0-7.5) H 07/05/18 09:16 Ur Specific [place] 1.031 (1.002-1.030) H 07/05/18 09:16 Urine Protein NEGATIVE (NEGATIVE) 07/05/18 09:16 Urine Ketones NEGATIVE (NEGATIVE) 07/05/18 09:16 Urine Blood NEGATIVE (NEGATIVE) 07/05/18 09:16 Urine Nitrate NEGATIVE (NEGATIVE) 07/05/18 09:16 Urine Bilirubin NEGATIVE (NEGATIVE) 07/05/18 09:16 Urine Urobilinogen NEGATIVE EU (0.2-1.0) 07/05/18 09:16 Ur Leukocyte Esterase NEGATIVE (NEGATIVE) 07/05/18 09:16 Urine RBC 1-3 /hpf (0-3) 07/05/18 09:16 Urine WBC 1-3 /hpf (0-3) 07/05/18 09:16 Ur Epithelial Cells TRACE /lpf (NONE-1+) 07/05/18 09:16 Urine Glucose NEGATIVE (NEGATIVE) 07/05/18 09:16 Urine Opiates Screen NON-NEGATIVE (NEGATIVE) H 07/05/18 09:16 Urine Barbiturates NEGATIVE (NEGATIVE) 07/05/18 09:16 Ur Phencyclidine Scrn NEGATIVE (NEGATIVE) 07/05/18 09:16 Ur Amphetamine Screen NEGATIVE (NEGATIVE) 07/05/18 09:16 U Benzodiazepines Scrn NON-NEGATIVE (NEGATIVE) H 07/05/18 09:16 Urine Cocaine Screen NEGATIVE (NEGATIVE) 07/05/18 09:16 U Marijuana (THC) Screen NON-NEGATIVE (NEGATIVE) H 07/05/18 09:16 Assessment & Plan Assessment: Abdominal pain (Acute) - DDx includes gastritis, PUD, acalculous cholecystitis ( mildly dilated common hepatic duct though nl LFT's), or opioid bowel disorder, noting her high doses of opioids (has 200 mcg fentanyl patches on her abdomen plus oral dilaudid). Also concerning is her [address] showed periportal edema, periportal edema, mildly distended common hepatic duct, thickened gall bladder, also thickened gastric wall, and mild to moderate constipation. -IV PPI, carafate -hidascan in am -clear liquids for now -will keep NPO at midnight as may warrant EGD, consult GI in am if not improving -bowel regimen for constipation -IVF's to maintain hydration -pain control Chronic pain secondary to spinal cord injury she suffered during surgery for scoliosis with subsequent avascular necrosis -cont home regimen including fentanyl patch and po dilaudid prn Anxiety - cont prn valium (reported home dose is 10-30 mg tid prn, will order 10 mg tid) Hypokalemia - replace, follow Full code Dispo - admit to inpt, anticipate >48 hrs hospitalization for ongoing workup and management of her abdominal pain
[2018-07-05] MEDS ORDERED: NS W/ 20 KCl/L 1,000 ML IV SCH (15:00)
[2018-07-05] MEDS ORDERED: HYDROCODONE/APAP 5/325 TAB ONE (16:03)
[2018-07-05] MEDS: PREGABALIN 100 MG CAP PO SCH ×2 (16:24→22:35)
[2018-07-05] MEDS: SUCRALFATE 1 GM/10 ML UDCUP PO SCH ×3 (16:24→22:36)
[2018-07-05] MEDS: HYDROmorphONE/DILAUDID 4 MG TAB PO PRN ×2 (18:21→23:49)
[2018-07-05] MEDS: DIAZEPAM 5 MG TAB PO PRN ×2 (18:24→23:48)
[2018-07-05] MEDS ORDERED: MELATONIN 3 MG TAB PO SCH (21:00)
[2018-07-05] MEDS: SENNOSIDES/DOCUSATE SODIUM TAB PO SCH (22:35)
[2018-07-06] MEDS ORDERED: KETOROLAC 15 MG/1 ML SDV IVP ONE ×2 (05:12→05:45)
[2018-07-06] MEDS ORDERED: ACETAMINOPHEN 325 MG TAB PO PRN (05:14)
[2018-07-06 05:20] LABS: PLATELET COUNT 141 10^3/uL (150-400)
[2018-07-06] MEDS: DIAZEPAM 5 MG TAB PO PRN (06:09)
[2018-07-06] MEDS ORDERED: LORazepam 2 MG/ML INJ IVP ONE (08:45)
[2018-07-06] MEDS ORDERED: DIAZEPAM 5 MG TAB PO PRN (09:08)
[2018-07-06] MEDS ORDERED: LR 1,000 ML IV ONE (09:10)
[2018-07-06] MEDS ORDERED: fentaNYL 50 MCG PATCH TD SCH (09:15)
[2018-07-06] MEDS ORDERED: fentaNYL 100 MCG PATCH TD SCH (09:45)
[2018-07-06] MEDS ORDERED: HYDROmorphONE/DILAUDID 2 MG/ML INJ ONE (09:53)
--- NOTE | 2018-07-06 09:59 | PDANEPAE ---
ANE History of Present Illness Ulcer ANE Past Medical History - Cardiovascular History Hx Palpitations: Yes - Pulmonary History Hx Asthma/Reactive Airway Disease: No Hx Oxygen in Use at Home: No Hx Sleep Apnea: No - Endocrine History Hx Diabetes: No - Neurological & Psychiatric Hx Neurological / Psychiatric History Comment: History narcotic abuse, presently withdrawing. - Chronic Pain History Chronic Pain: Yes ANE Review of Systems Review of Systems: ANE Patient History - Allergies Allergies/Adverse Reactions: acetaminophen [From Tylenol] Allergy (Verified 07/05/18 19:33) Rash cortisone Allergy (Verified 07/05/18 11:32) Other-Enter Comments Pork/Porcine Containing Products [pork] Allergy (Verified 07/05/18 06:57) - Home Medications Home medications: home medication list seen and reviewed Home Medications: Pregabalin [Lyrica 100mg (*)] 100 mg PO TID 10/24/17 [Last Taken 07/04/18 21:00] Diazepam [Valium 10 MG (*)] 20 - 30 mg PO TID PRN 07/05/18 [Last Taken 07/04/18 21:00] HYDROmorphone HCL [Dilaudid 4 mg (*)] 4 mg PO QID PRN 07/05/18 [Last Taken 07/04 21:00] Herbals/Supplements -Info Only 1 each PO DAILY 07/05/18 [Last Taken Unknown] Ketamine Nasal [place] 1 spray EACHNARE DAILY PRN 07/05/18 [Last Taken Unknown] Melatonin [Melatonin 3 MG (*)] 3 mg PO HS 07/05/18 [Last Taken 07/04/18] Multivitamins [Multivitamin (*)] 1 each PO DAILY 07/05/18 [Last Taken Unknown] Vitamin B Complex [Vitamin B Complex (OTC)] 1 each PO DAILY 07/05/18 [Last Taken Unknown] clonIDINE [Catapres (*)] 0.1 - 0.3 mg PO HS PRN 07/05/18 [Last Taken 07/04/18] fentaNYL [Duragesic 100 MCG Patch (*)] 100 mcg TD Q72H 07/05/18 [Last Taken ] - NPO status NPO Status: no food or drink >8 hours - Anes Hx Anes Hx: no prior problems - Smoking Hx Smoking Status: Never smoked - Alcohol Use Alcohol Use: None ANE Labs/Vital Signs - Labs Result Diagrams: 07/06/18 04:58 07/06/18 04:58 - Vital Signs Blood Pressure: 119/72 Heart Rate: 82 Respiratory Rate: 18 O2 Sat (%): 94 Height: 173.99 cm Weight: 54.136 kg ANE Physical Exam - Airway Neck exam: FROM Mallampati Score: Class 2 Mouth exam: normal dental/mouth exam - Pulmonary Pulmonary: no respiratory distress - Cardiovascular Cardiovascular: regular rate and rhythym - ASA Status ASA Status: III ANE Anesthesia Plan Anesthesia Plan: GA with mask (IV GA)
[2018-07-06] MEDS ORDERED: HYDROmorphONE/DILAUDID 2 MG/ML INJ IVP PRN ×2 (10:00→10:53)
[2018-07-06] MEDS ORDERED: PROPOFOL 200 MG/20 ML VIAL ONE (10:04)
--- NOTE | 2018-07-06 10:27 | GIREPORT ---
[facility] Surgical Services - Endoscopy Department Patient Name: Deisy Hurst Procedure Date: 07/06/2018 10:05 AM Patient Type: Inpatient Attending MD/ ER Physician: Wolf Hay MD Procedure: Upper GI endoscopy Indications: Epigastric abdominal pain, Abnormal CT of the GI tract (thickened gastr ic wall), Weight loss Providers: Wolf Hay MD Medicines: Monitored Anesthesia Care Complications: No immediate complications. Description of Procedure: After obtaining informed consent, the endoscope was passed under direct vision. Throughout the procedure, the patient's blood pressure, pulse, and oxygen saturations were monitored continuously. The Endoscope was intro duced through the mouth, and advanced to the third part of duodenum. The uppe r GI endoscopy was accomplished without difficulty. The patient tolerated th e procedure well. Findings: The examined esophagus was normal. Multiple dispersed, diminutive bleeding erosions were found in the enti re examined stomach. There were no stigmata of recent bleeding. Biopsies w ere taken with a cold forceps for histology. The examined duodenum was normal. Estimated Blood Loss: Estimated blood loss: none. Post Op Diagnosis: - Normal esophagus. - Bleeding erosive gastropathy. Biopsied. - Normal examined duodenum. Recommendation: - Return patient to hospital frye for ongoing care. - Advance diet as tolerated today. - Await pathology results. - The findings and recommendations were discussed with the patient and their family. Attending Participation: I personally performed the entire procedure. Wolf Hay MD Wolf Hay MD 07/06/2018 10:26:27 AM This report has been signed electronicallyWolf Hay MD Number of Addenda: 0 Note Initiated On: 07/06/2018 10:05 AM Total Procedure Duration Time 0 hours 4 minutes 43 seconds [email or web address]
--- NOTE | 2018-07-06 10:34 | POSTANESTH ---
Post Anesthetic Evaluation Cardiovascular Status: Similar to Pre-Op Cond Respiratory Status: Similar to Pre-op Cond. Level of Consciousness/Mental Status: Alert and Oriented Pain Control: Adequate, Prn Tx Ordered Nausea/Vomiting Control: Adequate, Prn Tx Ordered Complications Possibly Related to Anesthesia: None Noted
[2018-07-06] MEDS ORDERED: NALOXONE HCL 0.4 MG/ML INJ IVP PRN (10:53)
[2018-07-06] MEDS ORDERED: ONDANSETRON 4 MG/2 ML VIAL IVP PRN (10:53)
[2018-07-06] MEDS ORDERED: fentaNYL 100 MCG/2 ML INJ IVP PRN (10:53)
--- NOTE | 2018-07-06 11:04 | GCON ---
[f rep st] CONSULTATION GI CONSULTATION DATE OF CONSULTATION: 07/06/2018 REQUESTING PHYSICIAN: Dr. Iman Cobos. CHIEF COMPLAINT: Epigastric abdominal pain and weight loss. HISTORY OF PRESENT ILLNESS: The patient is a 38-year-old female with chronic pain syndrome secondary to a spinal cord injury as a complication from scoliosis. She also has peripheral neuropathy and anxiety. She is on a chronic fentanyl patch for these symptoms. She has been complaining of fairly severe sharp epigastric burning pain with radiation to the back over the last few weeks, which has been progressively more severe. She has denied any nausea or vomiting. She has had no change in her bowel habits. She has had a 15 pound weight loss over the last 6 months, unrelated to this. She was given a trial of PPI therapy without relief of her symptoms. She was admitted to the hospital yesterday for further evaluation. HOME MEDICATIONS: Pregabalin 100 mg p.o. t.i.d., diazepam 20-30 mg p.o. t.i.d. p.r.n. anxiety, Dilaudid 4 mg p.o. t.i.d. p.r.n. breakthrough pain, ketamine nasal spray to each naris p.r.n., melatonin 3 mg p.o. q. h.s., multivitamins 1 p.o. daily, Duragesic 100 mcg patch q.72 hours, clonidine 0.1 to 0.3 mg p.o. q. h.s. p.r.n., and vitamin B complex 1 tab daily. ALLERGIES: Acetaminophen, cortisone, and porcine containing products. PAST MEDICAL HISTORY: Significant for chronic pain secondary to spinal cord injury, peripheral neuropathy, avascular necrosis, and anxiety. PAST SURGICAL HISTORY: Spinal surgery. FAMILY HISTORY: Negative for peptic ulcer disease, GI malignancies or inflammatory bowel disease. SOCIAL HISTORY: She lives independent in [place]. She does not smoke tobacco or drink alcohol or take illicit drugs. REVIEW OF SYSTEMS: Other than HPI were negative for comprehensive review of systems. EXAMINATION: GENERAL: Well-developed, well-nourished female looking in moderate distress in her bed. VITALS: Temperature 37.1 Celsius, pulse 82 regular, blood pressure 119/72, respiratory rate 18, O2 saturation 94% on room air. INTEGUMENT: Multiple tattoos of upper extremities. HEENT: Head atraumatic, normocephalic. Pupils equal, round, reactive to light. EOMs are intact. Sclerae nonicteric. Mucous membranes moist. Dentition good. NECK: Supple. Trachea midline. LYMPHATICS: No cervical or axillary adenopathy palpated. PULMONARY: Lungs were clear to percussion and auscultation. CARDIOVASCULAR: Regular rhythm and rate. Normal S1, S2 without murmur. Peripheral pulses slightly decreased bilaterally. No pedal edema. GASTROINTESTINAL: Abdomen supple. Positive bowel sounds. Tender in all 4 quadrants without palpable mass or rebound. EXTREMITIES: Without deformity. NEURO: Alert, alerted x 3. LABS: White count 9.24, hemoglobin 11.3, hematocrit 34.5, platelets 141,000. Lactic acid 0.5. Electrolytes normal. Anion gap 4, BUN 6, creatinine 0.5. LFTs normal. Albumin 3.4, lipase 49. Beta HCG negative. Urinalysis negative. Abdominal ultrasound revealed mild gallbladder wall thickening without evidence of cholelithiasis. Common bile duct mildly dilated at 7 mm with questionable mild wall thickening. No common bile duct stone. Abdominal CT scan revealed periportal edema associated with the liver without focal abnormality. No CT evidence of appendicitis, abscess or bowel obstruction. Mild thickening of the gastric wall versus poor distention versus gastritis. [id number]-[id number] constipation. Dilated 2nd and 3rd portion of the duodenum, and mild dilated common hepatic and common bile duct with periportal edema without choledocholithiasis. IMPRESSION: 1. A 38-year-old female, on chronic narcotics for chronic pain syndrome, now with progressively more severe epigastric abdominal pain, rule out peptic ulcer disease. 2. Mildly dilated biliary tree consistent with chronic narcotic use, no evidence for choledocholithiasis, especially with normal liver enzymes and negative imaging for stones on CT scan. 3. Peripheral neuropathy by history. 4. Mild to moderate constipation, likely secondary to chronic narcotic use. Recommendation is to proceed with esophagogastroduodenoscopy today to rule out peptic ulcer disease. /[id number]/MODL MTDD
[2018-07-06] MEDS: PREGABALIN 100 MG CAP PO SCH (11:11)
[2018-07-06] MEDS: SUCRALFATE 1 GM/10 ML UDCUP PO SCH ×3 (11:11→11:47)
[2018-07-06] MEDS: HYDROmorphONE/DILAUDID 4 MG TAB PO PRN (11:11)
[2018-07-06] MEDS: PANTOPRAZOLE SODIUM 40 MG VIAL IVP SCH (11:45)
[2018-07-06] MEDS: SENNOSIDES/DOCUSATE SODIUM TAB PO SCH (11:46)
[2018-07-06 12:14] VITALS: BP 121/82
--- NOTE | 2018-07-06 14:03 | ASMTCMCOM ---
CM Note CM Note Notes: Met with patient and mother, September, to discuss discharge planning needs. Patient has a h/o chronic pain and epigastric and abdominal pain. EGD was performed today for further evaluation. Patient lives in an apt independently. Mother is from [place] and has been staying with patient for quite some time as patient needs much assistance, ie: prompting to eat and take meds and driving assistance d/t opioid use. Patient has extended family support in the area and they are working on getting the appropriate assistance into the home to support patient's needs. Patient is seen by a paperhanger and painter, Dr. Henry #[phone], and also PCP, Dr. John Brush. Mother reports patient's next PCP appt is scheduled for July 10. Patient and mother decline the need for further CM assistance at this time. CM contact info left should mother need any additional support. Plan: Independent Date Signed: 07/06/2018 02:03 PM Electronically Signed By:Nathalie Wheatley RN
--- NOTE | 2018-07-06 14:04 | ASMTLACE ---
ALEKSANDRA Length of stay for Answers: 1 day current admission Acuity / Level of Answers: No Care: Did the patient have an inpatient admission? Comorbidities - select Answers: Opioid dependence all that apply / Chronic pain # of Emergency department Answers: 1-2 visits in the last 6 months Social determinants Answers: Mental health diagnosis (anxiety, depression, pers onality disorders, etc.) Score: 9 Date Signed: 07/06/2018 02:03 PM Electronically Signed By:Nathalie Wheatley RN
[2018-07-06] MEDS ORDERED: PANTOPRAZOLE SODIUM 40 MG TAB PO SCH (21:00)
--- NOTE | 2018-07-07 06:14 | GDS ---
[f rep st] DISCHARGE SUMMARY DISCHARGE DIAGNOSES: 1. Epigastric abdominal pain secondary to bleeding erosive gastropathy. 2. Chronic pain secondary to spinal cord injury from scoliosis surgery. 3. History of avascular necrosis. 4. Anxiety. FLEXIBLE NANNY: Dr. Wolf Hay, Gastroenterology. IMAGING STUDIES/PROCEDURES: 1. Abdomen CT, July 05, 2018, revealed periportal edema with mild dilatation of the common hepatic duct and common bile duct. In addition, there is mild thickening of the gastric wall as well as evidence of mild to moderate constipation and distended 2nd and 3rd portion of the duodenum, probably related to peristalsis. 2. Upper endoscopy July 06, 2018, showed normal esophagus, bleeding erosive gastropathy, which was biopsied, normal appearing duodenum. HISTORY OF DETAILS: Please see history and physical dated July 05, 2018. In brief, the patient is a 38-year-old female with a history of chronic pain, on chronic continuous opioids who presented to the emergency department with epigastric abdominal pain, which is worsening over the past several weeks. She was admitted to the hospital for further management. HOSPITAL COURSE: The patient was admitted to the medical/surgical unit. The admitting differential for her pain was considered to be possibly gastritis versus peptic ulcer disease versus opioid-induced bowel motility. Acalculous cholecystitis was also a consideration given her periportal edema and mildly dilated common hepatic duct and common bile duct. She did however have normal LFTs. A HIDA scan was ordered for the following morning. She was continued on her fentanyl patch to her home dose of 150 mcg every 72 hours as well as her oral Dilaudid p.r.n. Unfortunately, her fentanyl patches were removed in the middle of the night without my knowledge at the direction of the field contact technician, who had hoped to do her HIDA scan with her off opioids. She subsequently developed acute opioid withdrawal, which was very distressing for the patient. As soon as this was brought to my attention, I immediately had her fentanyl patch replaced and she was given a dose of Dilaudid to treat her withdrawal as well as a milligram of IV Ativan. Her symptoms did quickly ariadne. A safety event was reported due to the discontinuation of her fentanyl without a doctor's order. Fortunately, she is feeling much better on the day of discharge, but she does wish to go home where she is more comfortable. She is pleased to have a diagnosis for her pain as the upper endoscopy revealed erosive gastropathy and this is consistent with her symptom pattern. Upon admission, she was started on IV PPI therapy and this was continued as oral Protonix twice daily. I recommend she follow up with Gastroenterology if her symptoms do not continue to improve. On the afternoon of discharge, the patient is stable with blood pressure 121/82 , heart rate 63, respiratory rate 19. She is saturating 94% on room air. She is tolerating liquids and feels very strongly about discharging home where she is under the close care of her mother 24 hours a day. DISPOSITION: Patient is discharged home in stable condition. FOLLOWUP: 1. Dr. Wolf Hay, Gastroenterology. 2. Dr. John Brush, primary care. DISCHARGE MEDICATIONS: Please see Hoods completed medication list. New medications on discharge include Protonix 40 mg p.o. twice daily, #60, no refills, sucralfate 1 g p.o. before meals and at bedtime. She will continue all other outpatient medications as previously prescribed. /[id number]/MODL MTDD
[2018-07-07] MEDS ORDERED: fentaNYL 100 MCG PATCH TD SCH (09:00)
== END 2018-07-06 14:50 | disposition home or self-care (01) ==
LOC: F3N 18:02
PROVIDERS: ADMIT Family Medicine; ATTEND Hospitalist
PROC: 0DB68ZX Excision of Stomach, Via Natural or Artificial Opening Endoscopic, Diagnostic (ICD-10-PCS; principal; 2018-07-05)
DX: R10.13 Epigastric pain (principal); K29.71 Gastritis, unspecified, with bleeding; G89.4 Chronic pain syndrome; E87.6 Hypokalemia; E86.9 Volume depletion, unspecified; K59.03 Drug induced constipation; F11.23 Opioid dependence with withdrawal; F41.9 Anxiety disorder, unspecified; G62.9 Polyneuropathy, unspecified; T81.9XXS Unspecified complication of procedure, sequela; Z98.890 Other specified postprocedural states
CPT/HCPCS: 80305; 96365; A9537; G0378; J1170; J1885; J2060; J2405; J2704; Q9967

== ENCOUNTER 2018-09-26 04:30 | Emergency (ER) | payer OTHER, MEDICAID ==
[2018-09-26] MEDS ORDERED: PROPOFOL 200 MG/20 ML VIAL ONE ×2 (05:10→05:11)
[2018-09-26] MEDS ORDERED: PROPOFOL 200 MG/20 ML VIAL IVP ONE (05:24)
[2018-09-26] MEDS ORDERED: NS 1,000 ML IV ONE (05:42)
[2018-09-26] MEDS ORDERED: ONDANSETRON 4 MG/2 ML VIAL ONE (05:46)
[2018-09-26] MEDS ORDERED: ONDANSETRON 4 MG/2 ML VIAL IVP ONE (05:47)
--- NOTE | 2018-09-26 05:48 | EDPHY ---
H & P Stated Complaint: left hip dislocation Time Seen by Provider: 09/26/18 04:31 HPI/ROS: HPI The patient presents with concern for left hip dislocation which she has a history of. She comes in from home brought in by ambulance after she was a woken from her sleep with severe left hip pain. The pain is achy in nature and has been constant. She has history of total hip replacement and has had dislocations in the past, last about 4 years ago. She denies any numbness or tingling of her leg. She denies any trauma to the area. At baseline she uses crutches for ambulation.. REVIEW OF SYSTEMS 10 systems were reviewed and negative with the exception of the elements mentioned in the history of present illness. PMHx: History of left hip replacement, spine operations, chronic pain using fentanyl patch Soc Hx: Lives at home PHYSICAL General Appearance: Alert, uncomfortable appearing Eyes: Pupils equal and round no pallor or injection ENT, Mouth: Mucous membranes moist Respiratory: There are no retractions, lungs are clear to auscultation Cardiovascular: Regular rate and rhythm Gastrointestinal: Abdomen is soft and non-tender, no masses, bowel sounds normal Neurological: A&O, moves all extremities Skin: Warm and dry, no rashes Musculoskeletal: Left hip is held in flexion, limited range of motion secondary to pain. 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, shattered pelvis, fx acetabulum, C4-T1 fusion [id number] fusion - Social History Smoking Status: Never smoked Constitutional: Initial Vital Signs Temperature (C) 36.6 C 09/26/18 04:30 Heart Rate 62 09/26/18 04:30 Respiratory Rate 16 09/26/18 04:30 Blood Pressure 93/55 L 09/26/18 04:30 O2 Sat (%) 99 09/26/18 04:30 O2 Delivery Mode [Procedural Non-Rebreather Mask 2nd] O2 Delivery Mode [Procedural Non-Rebreather Mask 1st] O2 Delivery Mode Room Air O2 (L/minute) [Procedural 2nd] 15 O2 (L/minute) [Procedural 1st] 15 O2 (L/minute) 4 Allergies/Adverse Reactions: acetaminophen [From Tylenol] Allergy (Verified 09/26/18 04:38) Rash cortisone Allergy (Verified 09/26/18 04:38) Other-Enter Comments Pork/Porcine Containing Products [pork] Allergy (Verified 09/26/18 04:38) Home Medications: Medication Instructions Recorded Pregabalin [Lyrica 100mg (*)] 100 mg PO TID 10/24/17 Diazepam [Valium 10 MG (*)] 20 - 30 mg PO TID PRN 07/05/18 HYDROmorphone HCL [Dilaudid 4 mg 4 mg PO QID PRN 07/05/18 (*)] Herbals/Supplements -Info Only 1 each PO DAILY 07/05/18 Multivitamins [Multivitamin (*)] 1 each PO DAILY 07/05/18 Vitamin B Complex [Vitamin B 1 each PO DAILY 07/05/18 Complex (OTC)] clonIDINE [Catapres (*)] 0.1 - 0.3 mg PO HS PRN 07/05/18 fentaNYL [Duragesic 100 MCG Patch 100 mcg TD Q72H 07/05/18 (*)] Pantoprazole Sodium [Protonix 40mg 40 mg PO BID #60 tab 07/06/18 (*)] Sucralfate [Carafate 1gm/10ml Oral 1 gm PO ACHS 30 Days #1 btl 07/06/18 Liquid (*)] Methocarbamol 09/26/18 Medical Decision Making - Diagnostics Imaging Results: Left hip x-ray two view shows dislocation of her prosthetic hip, interpreted by me, radiology interpretation pending. Repeat left hip x-ray single view shows prosthetic in good position, interpreted by me, radiology interpretation pending. Imaging: I viewed and interpreted images myself Procedures: PROCEDURAL SEDATION Procedure: Procedural sedation. Indication: Left hip dislocation The patient is an appropriate candidate to tolerate procedural sedation. The patient's vital signs and mental status are appropriate. The risks, benefits and alternatives of the sedation were discussed with the patient. The patient is ASA classification 2. The patient's Mallampati airway score was 1 and the patient did meet the 3-3-2 airway measurements. A time out was completed. The patient was sedated with propofol 70 mg. The patient was monitored with continuous pulse oximetry, manager monitoring and end tidal CO2. There were no complications and no significant hypoxemia. I performed both the sedation and the procedure. The total time I spent at the bedside during the procedural sedation was 15 minutes. The patient was examined after the procedural sedation and has returned to their pre-sedation baseline with normal vital signs and a normal examination. REDUCTION Procedure: Dislocation reduction. Indication: Dislocation The left hip was reduced in the usual fashion without complications using the Captain Ahsan technique. Post reduction the patient's neurovascular exam is normal. Post reduction x-ray demonstrates reduction of the joint to the anatomic position. The procedure was performed by myself. Differential Diagnosis: 38-year-old female with left-sided prosthetic hip presents with concern for hip dislocation which occurred while sleeping tonight. Using procedural sedation I was able to reduce it without difficulty. Patient was able to discharge home with her wheelchair which she uses usually. Differential diagnoses considered include hip dislocation, hip fracture, hip strain. - Data Points Medications Given: Discontinued Medications Sodium Chloride (Ns) 1,000 mls @ 0 mls/hr IV EDNOW ONE; Wide Open PRN Reason: Protocol Stop: 09/26/18 05:43 Last Admin: 09/26/18 05:25 Dose: 1,000 mls Ondansetron HCl (Zofran) 4 mg IVP EDNOW ONE Stop: 09/26/18 05:48 Last Admin: 09/26/18 05:51 Dose: 4 mg Propofol (Diprivan) 70 mg IVP EDNOW ONE Stop: 09/26/18 05:25 Last Admin: 09/26/18 05:26 Dose: 70 mg Departure - Departure Disposition: Home, Routine, Self-Care Clinical Impression: Hip dislocation, left Condition: Good Instructions: Hip Dislocation (ED) Additional Instructions: Please follow-up with your orthopedist in the next few days. Please continue to use her crutches until your pain is better. Referrals: Patient,NotPresent [Unknown] - As per Instructions
[2018-09-26 07:02] VITALS: BP 102/58
== END 2018-09-26 06:50 | disposition home or self-care (01) ==
LOC: EDUNIT#
PROC: 0SSBXZZ Reposition Left Hip Joint, External Approach (ICD-10-PCS; principal; 2018-09-26)
DX: T84.021A Dislocation of internal left hip prosthesis, initial encounter (principal)
CPT/HCPCS: 96374; J2405; J2704